=== PATIENT | male | born 1970 ===

== ENCOUNTER 2017-02-08 12:26 | Inpatient (IN) | payer OTHER ==
--- NOTE | 2017-02-08 13:09 | ED PDOC ---
HPI: Psych/Substance Abuse Time Seen by Provider: 02/08/17 12:46 Chief Complaint (Nursing): Psychiatric Evaluation Chief Complaint (Provider): Psychiatric Evaluation History Per: Patient History/Exam Limitations: no limitations Onset/Duration Of Symptoms: Days (x2) Additional History Per: Family (Sister) Additional Complaint(s): 12:46 Jun Bautista, 46 year old male with Schizophrenia, presents to the ED accompanied by his sister on 02/08/17. The patient has received a change of medication 2 days prior to arrival. He feels as if his recently prescribed medication is not working. His sister states that the patient has been very aggressive, "throwing boxes around". At work, the patient states that he has difficulty concentrating and voices very aggressive. The patient has suicidal ideations. Of note, the patient is stable here and is able to talk in complete sentences. PMD: Provider Not Given Past Medical History Reviewed: Historical Data, Nursing Documentation, Vital Signs Vital Signs: Last Vital Signs Temp 97.1 F L 02/08/17 12:39 Pulse 71 02/08/17 12:39 Resp 16 02/08/17 12:39 BP 125/79 02/08/17 12:39 Pulse Ox 98 02/08/17 12:39 - Medical History PMH: Diabetes, Schizophrenia - Family History Family History: States: Diabetes - Home Medications Home Medications: Ambulatory Orders Medication Instructions Recorded Benztropine [Cogentin] 1 tab PO DAILY 12/13/16 Glipizide [Glipizide Xl] 1 tab PO DAILY 12/13/16 MetFORMIN [glucoPHAGE] 1 tab PO BID 12/13/16 QUEtiapine [Seroquel XR] 1 tab PO DAILY 12/13/16 buPROPion XL [Wellbutrin XL] 1 tab PO DAILY 12/13/16 - Allergies Allergies/Adverse Reactions: Allergies Allergy/AdvReac Type Severity Reaction Status Date / Time No Known Allergies Allergy Verified 12/13/16 13:53 Review of Systems Psych: Positive for: Suicidal ideation, Other (aggressive; difficulty concentrating at work) Physical Exam - Reviewed Nursing Documentation Reviewed: Yes Vital Signs Reviewed: Yes - Physical Exam Appears: Positive for: Well, Non-toxic, No Acute Distress Head Exam: Positive for: ATRAUMATIC, NORMOCEPHALIC Skin: Positive for: Normal Color, Warm, Dry Eye Exam: Positive for: Normal appearance Neck: Positive for: Normal Neurologic/Psych: Positive for: Alert, Oriented (x3), Mood/Affect (Suicidal Ideations) - Laboratory Results Result Diagrams: 02/08/17 15:00 02/08/17 15:00 - ECG O2 Sat by Pulse Oximetry: 98 (RA) Pulse Ox Interpretation: Normal Medical Decision Making Medical Decision Makin:46 Initial Impression: Crisis Evaluation and Suicidal Ideation Initial Plan: * Patient being placed in 1:1 observation * pt will be admitted for schizophrenia under MD rosina pt is stable for admission Scribe~Attestation: Documented by Rosemary Wilson, acting as a~scribe~for Miya Dunbar PA-C. ~ Provider~Scribe~Attestation: All medical record entries made by the~Scribe~were at my direction and personally dictated by me. I have reviewed the chart and agree that the record accurately reflects my personal performance of the history, physical exam, medical decision making, and the department course for this patient. I have also personally directed, reviewed, and agree with the discharge instructions and disposition. Disposition - Clinical Impression Clinical Impression: Schizophrenia - Patient ED Disposition Is Patient to be Admitted: Yes - Disposition Disposition Time: 15:38 Condition: STABLE - Pt Status Changed To: Hospital Disposition Of: Inpatient - Admit Certification Admit to Inpatient:: After my assessment, the patient will require hospitalization for at least two midnights. This is because of the severity of symptoms shown, intensity of services needed, and/or the medical risk in this patient being treated as an outpatient. - POA Present On Arrival: None
[2017-02-08 15:06] LABS: BASO % 0.5 % (0.0-2.0); EOS # 0.1 K/uL (0.0-0.7); EOS % 1.1 % (0.0-4.0); HEMATOCRIT 44.5 % (35.0-51.0); LYMPH # 1.6 K/uL (1.0-4.3); LYMPH % 22.5 % (20.0-40.0); MEAN CELL VOLUME 87.2 fl (80.0-94.0); MEAN CORPUSCULAR HEMOGLOBIN 30.2 pg (27.0-31.0); MEAN CORPUSCULAR HGB CONC 34.7 g/dL (33.0-37.0); MEAN PLATELET VOLUME 8.2 fl (7.2-11.7); MONO # 0.5 K/uL (0.0-0.8); MONO % 6.8 % (0.0-10.0); NEUT # 4.8 K/uL (1.8-7.0); NEUT % 69.1 % (50.0-75.0); RBC URINE 1 /hpf (0-3); RED CELL DISTRIBUTION WIDTH 13.5 % (11.5-14.5); URINE BACTERIA RARE (<OCC); URINE BILIRUBIN NEGATIVE (NEGATIVE); URINE BLOOD NEGATIVE (NEGATIVE); URINE COLOR COLORLESS (YELLOW); URINE GLUCOSE (UA) NEG (Normal); URINE KETONE NEGATIVE (NEGATIVE); URINE LEUKOCYTE ESTERASE NEG Leu/uL (Negative); URINE PROTEIN NEGATIVE (NEGATIVE); URINE UROBILINOGEN 0.2-1.0 mg/dL (0.2-1.0)
[2017-02-08 15:16] LABS: CHLORIDE 96 mmol/L (98-107); POTASSIUM 4.8 MMOL/L (3.6-5.0); SODIUM 133 mmol/l (132-148)
[2017-02-08 15:18] LABS: AST/SGOT 53 U/L (17-59); BILIRUBIN,TOTAL 0.7 mg/dl (0.2-1.3); CARBON DIOXIDE 24 mmol/L (22-30); GFR AFRICAN-AMERICAN > 60
[2017-02-08 15:19] LABS: ALB/GLOB RATIO 1.3 (1.0-2.1); ALCOHOL SERUM < 10 mg/dl (0-10); ALKALINE PHOSPHATASE 121 U/L (38-126); ALT/SGPT 81 U/L (21-72); BLOOD UREA NITROGEN 5 mg/dl (9-20); CALCIUM 9.4 mg/dL (8.4-10.2); GLUCOSE,RANDOM 173 mg/dL (75-110); TOTAL PROTEIN 7.8 G/DL (6.3-8.2)
[2017-02-08] MEDS ORDERED: Magnesium Hydroxide Susp 30 ml UD PO PRN (20:03)
[2017-02-08] MEDS ORDERED: Alum-Mag Hydrox-Simethicone Susp (30 mL) PO PRN (20:03)
[2017-02-08] MEDS ORDERED: DiphenhydrAMINE 50 mg/ml Inj IM PRN (20:03)
--- NOTE | 2017-02-08 20:18 | CP.PCM.CON ---
History of Present Illness - History of Present Illness History of Present Illness: MEDICINE CONSULT CC: suicidal ideations and aggression 46 year old M hx of DM2, Schizophrenia, admitted to psych due to suicidal ideations, aggression and hearing voices. The patient has received a change of medication 2 days prior to admission. FP consulted to manage DM today. Curently denies CORONA/f/c/n/v/cp/sob/abd pain/ focal weakness. PMD: [facility]. L[facility] PMH: DM, schizophrenia PSH: denies SH: 1/2 PPD smoker x 16 yrs, social ETOH, denies drugs Allergies: NKDA Meds: per ECW Metformin HCl 1000 MG BID GlipiZIDE 10 MG BID Citalopram Hydrobromide 20 MG Tablet Quetiapine Fumarate 300 MG Tablet Benztropine Mesylate 1 MG Tablet Past Patient History - Past Social History Smoking Status: Light Smoker < 10 Cigarettes Daily - CARDIAC Hx Cardiac Disorders: No Hx Hypertension: No - PULMONARY Hx Tuberculosis: No - NEUROLOGICAL HX Cerebrovascular Accident: No Hx Seizures: No - ENDOCRINE/METABOLIC Hx Diabetes Mellitus Type 2: Yes - HEMATOLOGICAL/ONCOLOGICAL Hx Cancer: No Hx Human Immunodeficiency Virus (HIV): No - GENITOURINARY/GYNECOLOGICAL Hx Sexually Transmitted Disorders: No - PSYCHIATRIC Hx Substance Use: No - ANESTHESIA Hx Anesthesia: No Meds Allergies/Adverse Reactions: Allergies Allergy/AdvReac Type Severity Reaction Status Date / Time No Known Allergies Allergy Verified 12/13/16 13:53 - Medications Medications: Current Medications Acetaminophen (Tylenol 325mg Tab) 650 mg PO Q4 PRN PRN Reason: pain level 1-7 Al Hydrox/Mg Hydrox/Simethicone (Maalox Plus 30 Ml) 30 ml PO Q4 PRN PRN Reason: Dyspepsia Diphenhydramine HCl (Benadryl) 50 mg IM Q6 PRN PRN Reason: Extrapyramidal S/S Unable PO Diphenhydramine HCl (Benadryl) 50 mg PO Q6 PRN PRN Reason: Extrapyramidal Symptoms Haloperidol (Haldol) 5 mg PO Q4 PRN PRN Reason: Agitation Haloperidol Lactate (Haldol) 5 mg IM Q4 PRN PRN Reason: Agitation, Unable to Take PO Lorazepam (Ativan) 2 mg IM Q4 PRN PRN Reason: Anxiety/Agitation,Unable PO Lorazepam (Ativan) 2 mg PO Q4 PRN PRN Reason: Anxiety/Agitation Magnesium Hydroxide (Milk Of Magnesia) 30 ml PO HS PRN PRN Reason: Constipation Physical Exam - Constitutional Appears: Non-toxic - Head Exam Head Exam: ATRAUMATIC - Eye Exam Eye Exam: EOMI - ENT Exam ENT Exam: Mucous Membranes Moist - Neck Exam Neck exam: Positive for: Full Rom - Respiratory Exam Respiratory Exam: Clear to Auscultation Bilateral. absent: Rales, Rhonchi - Cardiovascular Exam Cardiovascular Exam: +S1, +S2 - GI/Abdominal Exam GI & Abdominal Exam: Normal Bowel Sounds, Soft. absent: Tenderness - Extremities Exam Extremities exam: Negative for: calf tenderness, pedal edema - Neurological Exam Neurological exam: Alert - Skin Skin Exam: Dry, Warm Results - Vital Signs Recent Vital Signs: Last Vital Signs Temp 98.0 F 02/08/17 17:37 Pulse 68 02/08/17 17:37 Resp 16 02/08/17 17:37 BP 138/64 02/08/17 17:37 Pulse Ox 99 02/08/17 17:37 - Labs Result Diagrams: 02/08/17 15:00 02/08/17 15:00 Assessment & Plan - Assessment and Plan (Free Text) Plan: 46 year old M hx of DM2, Schizophrenia, admitted to psych due to suicidal ideations, aggression and hearing voices. DM2 controlled Metformin HCl 1000 MG BID GlipiZIDE 10 MG BID accuckecks ACHS diabetic diet Schizophrenia as per psych management PPx DVT - ambulates w/o assistance Diet Diabetic, HH
[2017-02-08 20:35] VITALS: BMI 25.3
[2017-02-09 07:10] LABS: T4 7.13 ug/dl (5.5-11.0)
[2017-02-09 07:23] LABS: THYROID STIMULATING HORMONE 1.42 mIU/ML (0.46-4.68)
--- NOTE | 2017-02-09 11:45 | CARD ---
APPROVED REPORT EKG Measurement Heart [id number] <Conclusion> Normal sinus rhythm Normal ECG
--- NOTE | 2017-02-09 12:30 | PCM.PSYCH ---
Initial Psychiatric Evaluation - Initial Psychiatric Evaluation Type of Admission: Voluntary Legal Status: Capacity Chief Complaint (in patient's own words): i got worse Patient's Reaction to Hospitalization: cooperative History of Present Illness and Precipitating Events: [place] male, history of being treated for schizophrenia at [facility]. recently medication changes were made and pt appears to have decompensated. he is reporting that he hears the voice of the devil telling him to do bad things. he is paranoid. he seems restless and his thoughts are disorganized. apparently he had been on trilafon in the past. he reports he did not like taking risperdal. he reports haldol was used in the past and made his jaw tighten up. pt's symptoms are affective him at work in a negative way as he is feeling paranoid about his coworkers. he currently denies any suicidal or homicidal thoughts Current Medications: Active Medications Generic Name Dose Route Start Last Admin Trade Name Freq PRN Reason Stop Dose Admin Acetaminophen 650 mg 02/08/17 20:03 Tylenol 325mg Tab PO Q4 PRN pain level 1-7 Al Hydrox/Mg Hydrox/Simethicone 30 ml 02/08/17 20:03 Maalox Plus 30 Ml PO Q4 PRN Dyspepsia Aripiprazole 15 mg 02/10/17 09:00 Abilify PO DAILY DEONNA Benztropine Mesylate 2 mg 02/08/17 22:00 02/09/17 09:24 Cogentin PO 2 mg AMHS DEONNA Administration Diphenhydramine HCl 50 mg 02/08/17 20:03 Benadryl IM Q6 PRN Extrapyramidal S/S Unable PO Diphenhydramine HCl 50 mg 02/08/17 20:03 Benadryl PO Q6 PRN Extrapyramidal Symptoms Glipizide 10 mg 02/09/17 07:30 02/09/17 09:23 Glucotrol PO 10 mg BIDAC DEONNA Administration Haloperidol 5 mg 02/08/17 20:03 Haldol PO Q4 PRN Agitation Haloperidol Lactate 5 mg 02/08/17 20:03 Haldol IM Q4 PRN Agitation, Unable to Take PO Lorazepam 2 mg 02/08/17 20:03 Ativan IM Q4 PRN Anxiety/Agitation,Unable PO Lorazepam 2 mg 02/08/17 20:03 Ativan PO Q4 PRN Anxiety/Agitation Magnesium Hydroxide 30 ml 02/08/17 20:03 Milk Of Magnesia PO HS PRN Constipation Metformin HCl 1,000 mg 02/08/17 20:30 02/09/17 09:23 Glucophage PO 1,000 mg BIDWM DEONNA Administration Quetiapine Fumarate 400 mg 02/08/17 22:00 02/08/17 21:49 Seroquel PO 400 mg HS DEONNA Administration Past Psychiatric History - Past Psychiatric History Previous Treatment History: Inpatient Prior Professional Help: sees papo malave at [facility] for last 15 years History of Abuse: denies History of ETOH/Drug Use: quit smoking cigarettes 2 months ago. denies other substance use History of Family Illness: denies Pertinent Medical Hx (Current Medical&Sleep Prob, Allergies): Allergies Allergy/AdvReac Type Severity Reaction Status Date / Time No Known Allergies Allergy Verified 12/13/16 13:53 Benztropine [Cogentin] 2 tab PO DAILY 12/13/16 Glipizide [Glipizide Xl] 1 tab PO DAILY 12/13/16 MetFORMIN [glucoPHAGE] 1 tab PO BID 12/13/16 Aripiprazole [Abilify] 30 mg PO DAILY 02/08/17 Perphenazine [Perphenazine] 02/08/17 Review of Systems - Psychiatric Psychiatric: As Per HPI, Abnormal Sleep Pattern, Anxiety, Auditory Hallucinations, Depression, Difficulty Concentrating, Hopelessness, Paranoia Mental Status Examination - Personal Presentation Personal Presentation: Looks older than stated age - Affect Affect: Constricted - Motor Activity Motor Activity: Calm - Reliability in Providing Information Reliability in Providing Information: Poor, due to alteration in thoughts - Speech Speech: Disorganized, Tangential - Mood Mood: Depressed, Anxious - Formal Thought Process Formal Thought Process: Hallucinations, Delusions, Loosening of associations - Hallucinations/Delusions Hallucinations: Auditory - Obsessions/Compulsions Obsessions: No Compulsions: No - Cognitive Functions Orientation: Person, Place, Situation Sensorium: Alert Attention/Concentration: Easily distracted Abstract Thinking: [place] Estimate of Intelligence: Average Judgement: Intact, as evidence by: Insight regarding need for hospitalization ( is help seeking) Memory: Recent intact, as evidence by: Ability to recall events of the day, Remote intact, as evidenced by: Abilit to recall sig. life events - Risk Risk: Suicidal (denies plan or intent) - Strength & Assets Inventory Strength & Assets Inventory: Family support, Employment history DSM 5 DX - DSM 5 DSM 5 Diagnosis: schizophrenia paranoid type - Recommended/Plan of Treatment Treatment Recommendations and Plan of Treatment: admit to 3pn for safety and observation gather collateral information provide supportive therapy adjust medications- may have some akathisa and will start low dose klonopin, lower abilify and will consider lowering seroquel hospitalist consult disposition planning Projected ELOS: 7-10 days Prognosis: fair - Smoking Cessation Smoking Cessation Initiated: No Reason for not providing: pt stopped smoking over 2 months ago
--- NOTE | 2017-02-10 11:03 | PCM.PYCHPN ---
Psychiatric Progress Note - Psychiatric Progress Note Patient seen today, length of contact: discussed with team Patient Chief Complaint: i feel ok Problems Identified/Issues Discussed: pt remains with disorganized thoughs, he is paranoid. he denies auditory hallucinations, but seems to be still religiously preoccupied. he states he is sleeping better. denies feeling dizzy or other side effects with klonopin. Medication Change: No Medical Record Reviewed: Yes Mental Status Examination - Cognitive Function Orientation: Person, Place, Situation Memory: Intact Attention: WNL Concentration: WNL Association: WNL Fund of Knowledge: WN Decription of patient's judgement and insights: improving/fair - Mood Mood: Depressed, Anxious - Affect Affect: Constricted - Speech Speech: Appropriate - Formal Thought Process Formal Thought Process: Delusions, Paranoia (still paranoid about coworkers, feels safe here), Loosening of associations, Other (congregation preoccupation, sti ) - Suicidal Ideation Suicidal Ideation: No - Homicidal Ideation Homicidal Ideation: No Goal/Treatment Plan - Goal/Treatment Plan Need for Continued Stay: Remain at risks for inpatient hospitalization, Discharge may exacerbated symptoms Progress Toward Problem(s) and Goals/Treatment Plan: schizohprenia, paranoid will continue current medicaitons have lowered abilify and will lower cogentin will maintain 400mg of seroquel for now will continue to assess for akathesia/psychosis and adjust medications continue klonopin Estimated Date of D/C: 02/18/17 - Smoking Cessation Smoking Cessation Initiated: No Reason for not providing: does not smoke
--- NOTE | 2017-02-11 08:39 | CP.PCM.PN ---
Subjective - Date & Time of Evaluation Date of Evaluation: 02/11/17 Time of Evaluation: 08:10 - Subjective Subjective: 46 year old M hx of DM2, Schizophrenia, admitted to psych due to suicidal ideation, aggression and hearing voices. Curently denies CORONA/f/c/n/v/cp/sob/abd pain/ focal weakness. He is still preoccupied about his mental health status but denies suicidal or homicidal ideation. Objective - Vital Signs/Intake and Output Vital Signs (last 24 hours): Temp Pulse Resp BP Pulse Ox 97.3 F L 83 18 131/90 99 02/10/17 17:00 02/10/17 17:00 02/10/17 17:00 02/10/17 17:00 02/08/17 17:37 - Medications Medications: Current Medications Acetaminophen (Tylenol 325mg Tab) 650 mg PO Q4 PRN PRN Reason: pain level 1-7 Al Hydrox/Mg Hydrox/Simethicone (Maalox Plus 30 Ml) 30 ml PO Q4 PRN PRN Reason: Dyspepsia Aripiprazole (Abilify) 15 mg PO DAILY [facility] Last Admin: 02/10/17 08:57 Dose: 15 mg Benztropine Mesylate (Cogentin) 1 mg PO AMHS [facility] Last Admin: 02/10/17 21:05 Dose: 1 mg Clonazepam (Klonopin) 0.5 mg PO BID [facility] Last Admin: 02/10/17 17:35 Dose: 0.5 mg Diphenhydramine HCl (Benadryl) 50 mg IM Q6 PRN PRN Reason: Extrapyramidal S/S Unable PO Diphenhydramine HCl (Benadryl) 50 mg PO Q6 PRN PRN Reason: Extrapyramidal Symptoms Glipizide (Glucotrol) 10 mg PO BIDAC [facility] Last Admin: 02/10/17 17:35 Dose: 10 mg Haloperidol (Haldol) 5 mg PO Q4 PRN PRN Reason: Agitation Haloperidol Lactate (Haldol) 5 mg IM Q4 PRN PRN Reason: Agitation, Unable to Take PO Lorazepam (Ativan) 2 mg IM Q4 PRN PRN Reason: Anxiety/Agitation,Unable PO Lorazepam (Ativan) 2 mg PO Q4 PRN PRN Reason: Anxiety/Agitation Magnesium Hydroxide (Milk Of Magnesia) 30 ml PO HS PRN PRN Reason: Constipation Metformin HCl (Glucophage) [facility] [place] Last Admin: 02/10/17 17:36 Dose: 1,000 mg Quetiapine Fumarate (Seroquel) 400 mg PO HS [facility] Last Admin: 02/10/17 21:05 Dose: 400 mg - Constitutional Appears: Non-toxic, No Acute Distress - Head Exam Head Exam: NORMAL INSPECTION - Eye Exam Eye Exam: PERRL - ENT Exam ENT Exam: Mucous Membranes Moist - Neck Exam Neck Exam: Full ROM, Normal Inspection - Respiratory Exam Respiratory Exam: Clear to Ausculation Bilateral, NORMAL BREATHING PATTERN - Cardiovascular Exam Cardiovascular Exam: REGULAR RHYTHM, +S1, +S2. absent: Gallop - GI/Abdominal Exam GI & Abdominal Exam: Soft, Normal Bowel Sounds. absent: Tenderness - Extremities Exam Extremities Exam: Full ROM, Normal Capillary Refill - Neurological Exam Neurological Exam: Alert, Awake, Oriented x3 - Psychiatric Exam Psychiatric exam: Anxious, Normal Affect, Normal Mood - Skin Skin Exam: Normal Color, Warm Assessment and Plan - Assessment and Plan (Free Text) Assessment: 46 year old M hx of DM2, Schizophrenia, admitted to psych due to suicidal ideation, aggression and hearing voices. 1-DM2 controlled Metformin HCl 1000 MG BID GlipiZIDE 10 MG BID accgloria MERCADO diabetic diet will cont monitoring 2-Schizophrenia as per psych management 3-PPx DVT - ambulates w/o assistance
--- NOTE | 2017-02-11 13:11 | PCM.PYCHPN ---
Psychiatric Progress Note - Psychiatric Progress Note Patient seen today, length of contact: discussed with team Patient Chief Complaint: i feel more relaxed Problems Identified/Issues Discussed: pt denies medication side effects. states he is feeling better seems less internally preoccupied. denies any suicidal thoughts Medication Change: No Medical Record Reviewed: Yes Mental Status Examination - Cognitive Function Orientation: Person, Place, Situation Memory: Intact Attention: WNL Concentration: WNL Association: WNL Fund of Knowledge: WNL Decription of patient's judgement and insights: improving/fair - Mood Mood: Anxious - Affect Affect: Constricted - Speech Speech: Appropriate - Formal Thought Process Formal Thought Process: Delusions, Paranoia (less paranoid), Loosening of associations, Other (yazidi preoccupation, sti) - Suicidal Ideation Suicidal Ideation: No - Homicidal Ideation Homicidal Ideation: No Goal/Treatment Plan - Goal/Treatment Plan Need for Continued Stay: Remain at risks for inpatient hospitalization, Discharge may exacerbated symptoms Progress Toward Problem(s) and Goals/Treatment Plan: schizohprenia, paranoid will continue current medicaitons have lowered abilify and will lower cogentin will maintain 400mg of seroquel for now will continue to assess for akathesia/psychosis and adjust medications continue klonopin to help with anxiety/akathesia Estimated Date of D/C: 02/18/17
[2017-02-11 16:40] VITALS: O2SAT 100
--- NOTE | 2017-02-12 09:40 | PCM.PYCHPN ---
Psychiatric Progress Note - Psychiatric Progress Note Patient seen today, length of contact: discussed with team Patient Chief Complaint: pt is still internally preoccupied and hearing voices but denies suicidal ideation pt denies side effects. Problems Identified/Issues Discussed: pt was admitted for psychotic agitation DSM 5 Symptoms Update: paranoid schizophrenia Medication Change: No Medical Record Reviewed: Yes Mental Status Examination - Cognitive Function Orientation: Person, Place, Situation Memory: Intact Attention: Poor Concentration: Poor Association: Loose Fund of Knowledge: Poor - Mood Mood: Anxious - Affect Affect: Constricted - Speech Speech: Appropriate - Formal Thought Process Formal Thought Process: Hallucinations, Delusions, Paranoia (less paranoid), Loosening of associations, Other (denominational preoccupation, sti) - Suicidal Ideation Suicidal Ideation: No - Homicidal Ideation Homicidal Ideation: No Goal/Treatment Plan - Goal/Treatment Plan Need for Continued Stay: Remain at risks for inpatient hospitalization, Discharge may exacerbated symptoms Progress Toward Problem(s) and Goals/Treatment Plan: will continue to titrate the med and adjust abilify and seroquel and engage pt in therapy and groups Estimated Date of D/C: 02/18/17
[2017-02-13 07:47] LABS: HEMATOCRIT 44.9 % (35.0-51.0); MEAN CELL VOLUME 88.5 fl (80.0-94.0); MEAN CORPUSCULAR HEMOGLOBIN 30.5 pg (27.0-31.0); MEAN CORPUSCULAR HGB CONC 34.5 g/dL (33.0-37.0); RED CELL DISTRIBUTION WIDTH 13.8 % (11.5-14.5); WHITE BLOOD COUNT 7.1 K/uL (4.8-10.8)
--- NOTE | 2017-02-13 15:32 | PCM.PYCHPN ---
Psychiatric Progress Note - Psychiatric Progress Note Patient seen today, length of contact: discussed with team Patient Chief Complaint: pt is still internally preoccupied and hearing voices but denies suicidal ideation pt denies side effects. Problems Identified/Issues Discussed: pt was admitted for psychotic agitation DSM 5 Symptoms Update: schizophrenia ,paranoid type Medication Change: No Medical Record Reviewed: Yes Mental Status Examination - Cognitive Function Orientation: Person, Place, Situation Memory: Intact Attention: Poor Concentration: Poor Association: Loose Fund of Knowledge: Poor - Mood Mood: Anxious - Affect Affect: Constricted - Speech Speech: Appropriate - Formal Thought Process Formal Thought Process: Hallucinations, Delusions, Paranoia (less paranoid), Loosening of associations, Other (yazidism preoccupation, sti) - Suicidal Ideation Suicidal Ideation: No - Homicidal Ideation Homicidal Ideation: No Goal/Treatment Plan - Goal/Treatment Plan Need for Continued Stay: Remain at risks for inpatient hospitalization, Discharge may exacerbated symptoms Progress Toward Problem(s) and Goals/Treatment Plan: will continue to titrate the med and adjust abilify and seroquel and engage pt in therapy and groups Estimated Date of D/C: 02/18/17
--- NOTE | 2017-02-14 13:22 | PCM.PYCHPN ---
Psychiatric Progress Note - Psychiatric Progress Note Patient seen today, length of contact: discussed with team Patient Chief Complaint: i feel better now Problems Identified/Issues Discussed: pt denies medication side effects. states he feels much better. able to participate in groups. able to discuss the importance of taking his medications regularly. pt denies suicidal thoughts Medication Change: No Medical Record Reviewed: Yes Mental Status Examination - Cognitive Function Orientation: Person, Place, Situation Memory: Intact Attention: Poor Concentration: Poor Association: Loose Fund of Knowledge: Poor Decription of patient's judgement and insights: fair - Mood Mood: Anxious - Affect Affect: Constricted - Speech Speech: Appropriate - Formal Thought Process Formal Thought Process: Loosening of associations - Suicidal Ideation Suicidal Ideation: No - Homicidal Ideation Homicidal Ideation: No Goal/Treatment Plan - Goal/Treatment Plan Need for Continued Stay: Remain at risks for inpatient hospitalization, Discharge may exacerbated symptoms Progress Toward Problem(s) and Goals/Treatment Plan: schizohprenia, paranoid will continue current medicaitons discharge tomorrow Estimated Date of D/C: 02/18/17
--- NOTE | 2017-02-15 11:41 | PCM.PYCHPN ---
Psychiatric Progress Note - Psychiatric Progress Note Patient seen today, length of contact: discussed with team Patient Chief Complaint: i feel better Problems Identified/Issues Discussed: pt denies medication side effects. states he feels better. able to participate in groups. agrees to take his medications regularly. pt denies suicidal thoughts. sister has reported pt is improving, but not at baseline as of tuesday. pt wants to go home. Medication Change: No Medical Record Reviewed: Yes Mental Status Examination - Cognitive Function Orientation: Person, Place, Situation Memory: Intact Attention: Poor Concentration: Poor Association: Loose Fund of Knowledge: Poor Decription of patient's judgement and insights: fair - Mood Mood: Anxious - Affect Affect: Constricted - Speech Speech: Appropriate - Formal Thought Process Formal Thought Process: Loosening of associations - Suicidal Ideation Suicidal Ideation: No - Homicidal Ideation Homicidal Ideation: No Goal/Treatment Plan - Goal/Treatment Plan Need for Continued Stay: Remain at risks for inpatient hospitalization, Discharge may exacerbated symptoms Progress Toward Problem(s) and Goals/Treatment Plan: schizohprenia, paranoid will continue current medicaitons discharge on 02/16 Estimated Date of D/C: 02/18/17
[2017-02-15 17:47] VITALS: RESP 18
[2017-02-16 08:52] VITALS: BP 121/86; PULSE 88; TEMP 96.1
--- NOTE | 2017-02-16 11:05 | PCM.PYCHDC ---
Mental Status Examination - Mental Status Examination Orientation: Person, Place, Situation, Time Memory: Intact Mood: Neutral Affect: Constricted Speech: Appropriate Attention: WNL Concentration: WNL Association: WNL Fund of Knowledge: WNL Formal Thought Process: No Impairment Description of patient's judgement and insight: fair i/j Psychotic Thoughts and Behaviors: pt denies any a/v hallucinations Suicidal Ideation: No Current Homicidal Ideation?: No Plan: pt denies any suicidal or homicidal thoughts/plans or intent Discharge Summary - Discharge Note Reason for Hospitalization: pt increasingly paranoid, hearing voices, religiously preoccupied after medication changes Psychiatric History (includes Medical, Family, Personal Hx): history of schizoaffective disorder Consultations:: List each consultation separately and include: 1. Reason for request. 2. Findings. 3. Follow-up Consultations: seen by the hospitalist Summary of Hospital Course include:: 1. Description of specific treatment plan utilized for patients during their course of treatmen. 2. Summarize the time- course for resolution of acute symptoms and/or regressed behaviors. 3. Describe issues identified and worked on during hospitalization. 4. Describe medication utilized. 5. Describe medical problems identified and treated. 6. Reassessment of suicide risk Summary of Hospital Course: french male, history of being treated for schizophrenia at [facility]. recently medication changes were made and pt appears to have decompensated. he is reporting that he hears the voice of the devil telling him to do bad things. he is paranoid. he seems restless and his thoughts are disorganized. apparently he had been on trilafon in the past. he reports he did not like taking risperdal. he reports haldol was used in the past and made his jaw tighten up. pt's symptoms are affective him at work in a negative way as he is feeling paranoid about his coworkers. he currently denies any suicidal or homicidal thoughts hospital course admited to [facility] and oriented to the unit. seen by hospitalist. seen by the treatment team. pt's medications were adjusted- abilify lowered from 30 to 15 as pt appeared to be anxious/restless and with akathesia. he was started on low dose klonopiin for this. he tolerated the medication changes. his psychotic symptoms improved. he attended groups. he was without any aggression or agitation. he was eager to follow up with treatment and wanted to make sure he had his prescriptions so that he could take medications as prescribed after discharge. pt was denying any suicidal or homicidal thoughts at time of discharge. - Final Diagnosis (DSM 5) Condition upon Discharge: STABLE DSM 5: schizophrenia, paranoid Disposition: HOME/ ROUTINE Follow-up Treatment Plan: take medications as prescribed do not use alcohol, tobacco or other illicit substances call 911 if any suicidal or homicidal thoughts follow up with aftercare as directed. Prescriptions/Medication Reconciliation: ARIPiprazole [Abilify] 15 mg PO DAILY #30 tab Benztropine [Cogentin] 1 mg PO AMHS #60 tab clonazePAM [Klonopin] 0.5 mg PO BID #60 tab Quetiapine Fumarate [Seroquel] 400 mg PO HS #30 tablet - Smoking Cessation Smoking Cessation Medication prescribed: No Reason for not providing: declined - Antipsychotic Medications Pt discharged on 2 or more routine antipsychotic medications: Yes - Justification for 2 or more meds Failed 3 or more trials of Monotherapy: List medications: has been on prolixin , abilify, seroquel and others
== END 2017-02-16 14:19 | disposition home or self-care (01) | DRG 430 ==
LOC: H.ER 12:26 → H.ERHOLD 15:27 → H.PSYCH 18:36
PROVIDERS: ADMIT Psychiatry & Neurology Psychiatry; ATTEND Psychiatry & Neurology Psychiatry
PROC: GZHZZZZ Group Psychotherapy (ICD-10-PCS; principal; 2017-02-08)
PROC: GZ58ZZZ Individual Psychotherapy, Cognitive-Behavioral (ICD-10-PCS; 2017-02-08)
DX: F20.0 Paranoid schizophrenia (principal); R45.851 Suicidal ideations; E11.9 Type 2 diabetes mellitus without complications; F17.210 Nicotine dependence, cigarettes, uncomplicated; Z79.84 Long term (current) use of oral hypoglycemic drugs

== ENCOUNTER 2018-06-07 10:17 | Emergency (ER) | payer SELFPAY ==
[2018-06-07 10:36] VITALS: BMI 32.3
--- NOTE | 2018-06-07 11:27 | ED PDOC ---
Lower Extremity Pain/Injury Time Seen by Provider: 06/07/18 11:24 Chief Complaint (Nursing): Lower Extremity Problem/Injury Chief Complaint (Provider): knee pain History Per: Patient (47 y/o male here with right knee pain x 2 weeks noted after colliding with another individual during basketball. Able to ambulate due to pain. Has h/o elevated lfts and is cautious with intake of medication.) Past Medical History Reviewed: Historical Data, Nursing Documentation, Vital Signs Vital Signs: Last Vital Signs Temp 98.9 F 06/07/18 10:36 Pulse 80 06/07/18 10:36 Resp 17 06/07/18 10:36 BP 99/68 L 06/07/18 10:36 Pulse Ox 96 06/07/18 10:36 - Medical History PMH: Diabetes, Schizophrenia Denies: Hepatitis, HIV, HTN, Chronic Kidney Disease, Seizures, Sexually Transmitted Disease - Family History Family History: States: Diabetes - Home Medications Home Medications: Ambulatory Orders Medication Instructions Recorded Glipizide [Glipizide Xl] 1 tab PO DAILY 12/13/16 MetFORMIN [glucoPHAGE] 1 tab PO BID 12/13/16 ARIPiprazole [Abilify] 15 mg PO DAILY #0 tab 02/16/17 ARIPiprazole [Abilify] 15 mg PO DAILY #30 tab 02/16/17 Benztropine [Cogentin] 1 mg PO AMHS #60 tab 02/16/17 Quetiapine Fumarate [Seroquel] 400 mg PO HS #30 tablet 02/16/17 clonazePAM [Klonopin] 0.5 mg PO BID #60 tab 02/16/17 - Allergies Allergies/Adverse Reactions: Allergies Allergy/AdvReac Type Severity Reaction Status Date / Time No Known Allergies Allergy Verified 06/07/18 11:11 Review of Systems ROS Statement: Except As Marked, All Systems Reviewed And Found Negative Physical Exam - Reviewed Nursing Documentation Reviewed: Yes Vital Signs Reviewed: Yes - Physical Exam Appears: Positive for: Well, Non-toxic, No Acute Distress Head Exam: Positive for: ATRAUMATIC, NORMAL INSPECTION, NORMOCEPHALIC Skin: Positive for: Normal Color, Warm, DRY Eye Exam: Positive for: EOMI, Normal appearance, PERRL ENT: Positive for: Normal ENT Inspection Neck: Positive for: Normal, Painless ROM Cardiovascular/Chest: Positive for: Regular Rate, Rhythm Respiratory: Positive for: CNT, Normal Breath Sounds Gastrointestinal/Abdominal: Positive for: Normal Exam, Soft Back: Positive for: Normal Inspection Extremity: Positive for: Normal ROM, Other (minimal effusion noted. Able to flex and extend noted tenderness with range of motion. No bony tenderness elicited.) Neurologic/Psych: Positive for: Alert, Oriented - ECG O2 Sat by Pulse Oximetry: 96 - Progress ED Course And Treament: Toradol 30 mg IM knee xry right: no fx knee immobilizer right knee Disposition - Clinical Impression Clinical Impression: Strain of knee and leg, right - Patient ED Disposition Is Patient to be Admitted: No - Disposition Referrals: [facility] [Outside] Kevyn Crook III, MD [Staff Provider] - Disposition: Routine/Home Disposition Time: 12:09 Condition: FAIR Instructions: Knee Sprain (DC)
--- NOTE | 2018-06-07 12:49 | RAD ---
Date of service: 06/07/2018 PROCEDURE: Right Knee Radiographs. HISTORY: right knee pain COMPARISON: None. FINDINGS: BONES: Normal. No fracture. JOINTS: Normal. No osteoarthritis. JOINT EFFUSION: None. OTHER FINDINGS: None. IMPRESSION: Normal radiographs of the right knee.
[2018-06-07 13:04] VITALS: BP 111/65; PULSE 70; RESP 16; TEMP 98.7; O2SAT 98
== END 2018-06-07 12:35 | disposition home or self-care (01) ==
LOC: H.ER 10:17
DX: S83.91XA Sprain of unspecified site of right knee, initial encounter (principal); E11.9 Type 2 diabetes mellitus without complications; Z86.59 Personal history of other mental and behavioral disorders; Z79.84 Long term (current) use of oral hypoglycemic drugs; W51.XXXA Accidental striking against or bumped into by another person, initial encounter; Y93.67 Activity, basketball
CPT/HCPCS: 73562; 96372; 99284; J1885